=== PATIENT | male | born 1970 | race Caucasian/White ===

== ENCOUNTER 2019-03-05 10:48 | Emergency (ER) | payer OTHER ==
[2019-03-05 10:54] VITALS: RESP 18
[2019-03-05] MEDS ORDERED: methylPREDNISolone SOD SUCCI 125 MG/2 ML VIAL IV STA (11:23)
[2019-03-05] MEDS ORDERED: FAMOTIDINE 20 MG/2 ML VIAL IV STA (11:23)
[2019-03-05] MEDS ORDERED: diphenhydrAMINE 50 MG/ML 1 ML VIAL IVP STA (11:23)
--- NOTE | 2019-03-05 11:46 | ED ---
Allergic Reaction HPI - General Chief complaint: Allergic Reaction Stated complaint: Bee sting Time Seen by Provider: 03/05/19 11:11 Source: patient Mode of arrival: ambulatory Limitations: no limitations - History of Present Illness Initial Comments: Is a 49-year-old male with a benign history for ALLERGIES was stung by a bee this morning around 73 to 8:00. He states it started around the right eyebrow. It today started developing erythema and rash feels like is a lump in his throat he states he has a rash on his arms trunk and legs. He has never had a problem with this before no difficulty breathing. No nausea no vomiting sweats or other symptoms no palpitations no lightheadedness. MD Complaint: allergic reaction, hives - Related Data Home Medications Medication Instructions Recorded Confirmed Rivaroxaban [Xarelto] 20 mg PO DAILY 03/05/19 03/05/19 diphenhydrAMINE HCL [Children's 50 mg PO ONCE PRN 03/05/19 03/05/19 Benadryl Allergy] Previous Rx's Medication Instructions Recorded EPINEPHrine [Epipen 2-Uriel] 0.3 mg IM ONCE PRN #1 pack 03/05/19 Famotidine [Pepcid] 20 mg PO BID #10 tablet 03/05/19 methylPREDNISolone Dose Pack 4 mg PO DIRECTED #21 package 03/05/19 [Medrol Dose Pack] Allergies Allergy/AdvReac Type Severity Reaction Status Date / Time venom-honey bee Allergy Rash/Hives Verified 03/05/19 11:15 Review of Systems ROS Statement: Those systems with pertinent positive or pertinent negative responses have been documented in the HPI. ROS Other: All systems not noted in ROS Statement are negative. Past Medical History Additional Past Medical History / Comment(s): PE, DVT History of Any Multi-Drug Resistant Organisms: None Reported Past Surgical History: Orthopedic Surgery Past Psychological History: No Psychological Hx Reported Smoking Status: Current every day smoker Past Alcohol Use History: Daily Past Drug Use History: Marijuana General Exam - General Exam Comments Initial Comments: This is a well-developed well-nourished awake alert oriented 3 male Limitations: no limitations General appearance: alert, in no apparent distress, anxious Head exam: Present: normocephalic, other (Marked erythema to the right orbit right eyebrow area no definite foreign body seen the sting site is asked he clearly not identified. Marked erythema to the face however. Edema to the right eyelid. Erythema the right eyelid.) Eye exam: Present: PERRL, EOMI. Absent: normal appearance ENT exam: Present: normal exam, mucous membranes moist Neck exam: Present: normal inspection, full ROM, other (No stridor JVD or bruits). Absent: tenderness, meningismus, lymphadenopathy Respiratory exam: Present: normal lung sounds bilaterally. Absent: wheezes, rales, decreased breath sounds Cardiovascular Exam: Present: regular rate, normal rhythm, normal heart sounds. Absent: systolic murmur, diastolic murmur, rubs, gallop, clicks GI/Abdominal exam: Present: soft, normal bowel sounds, other. Absent: distended, tenderness, guarding, rebound, rigid Extremities exam: Present: full ROM, normal capillary refill, other (Rash noted to the upper or lower extremities). Absent: tenderness, pedal edema, joint swelling, calf tenderness Back exam: Present: normal inspection Neurological exam: Present: alert, oriented X3, CN II-XII intact Psychiatric exam: Present: normal affect, normal mood Skin exam: Present: warm, dry, intact, erythema, urticaria. Absent: normal color, rash Course Vital Signs 03/05/19 10:52 Temperature 97.7 F Pulse Rate 98 Respiratory 18 Rate Blood Pressure 148/105 O2 Sat by Pulse 98 Oximetry Medical Decision Making - Medical Decision Making I did reevaluate patient several occasions he is feeling improved he'll be discharged on appropriate medication will also be given a prescription for an EpiPen. He was cautioned about exposure to heat. Disposition Clinical Impression: Allergic reaction, Bee sting reaction Disposition: HOME SELF-CARE Condition: Good Instructions (If sedation given, give patient instructions): Allergic Rhinitis (ED), Insect Bite or Sting (ED) Additional Instructions: [id number] Benadryl 25 mg every 6 hours as needed. Avoid hot environments for the next several days. Prescriptions: EPINEPHrine [Epipen 2-Uriel] 0.3 mg IM ONCE PRN #1 pack PRN Reason: Anaphylaxis methylPREDNISolone Dose Pack [Medrol Dose Pack] 4 mg PO DIRECTED #21 package Famotidine [Pepcid] 20 mg PO BID #10 tablet Is patient prescribed a controlled substance at d/c from ED?: No Referrals: Nonstaff,Physician [Primary Care Provider] - 1-2 days
[2019-03-05] MEDS ORDERED: KETOROLAC 30 MG/ML 1 ML VIAL IVP STA (12:15)
[2019-03-05 14:13] VITALS: BP 140/90; PULSE 63; TEMP 98.4
== END 2019-03-05 14:13 | disposition home or self-care (01) ==
LOC: EC 10:48
DX: T63.441A Toxic effect of venom of bees, accidental (unintentional), initial encounter (principal); F17.200 Nicotine dependence, unspecified, uncomplicated; Z86.718 Personal history of other venous thrombosis and embolism; Z86.711 Personal history of pulmonary embolism; Z79.01 Long term (current) use of anticoagulants; Z91.030 Bee allergy status
CPT/HCPCS: 99282; 96374; 96375 ×3; J1200; J2930; J1885

== ENCOUNTER 2021-02-06 01:30 | Emergency (ER) | payer OTHER ==
[2021-02-06 01:43] VITALS: TEMP 97.8
[2021-02-06] MEDS ORDERED: KETOROLAC 15 MG/ML 1 ML VIAL IVP STA (02:18)
[2021-02-06] MEDS ORDERED: MORPHINE SULFATE 4 MG/ML SYRINGE IV STA (02:18)
--- NOTE | 2021-02-06 02:22 | ED ---
Extremity Problem HPI - General Chief complaint: Extremity Problem,Nontraumatic Stated complaint: Lt Leg Pain Time Seen by Provider: 02/06/21 01:47 Source: patient Mode of arrival: wheelchair Limitations: no limitations - History of Present Illness MD Complaint: extremity pain, extremity swelling Onset/Timin -: days(s) Location: left, lower extremity History of Same: Yes Radiation: none Quality: aching Consistency: constant Worsens with: weight bearing, palpation Associated Symptoms: denies other symptoms - Related Data Home Medications Medication Instructions Recorded Confirmed Rivaroxaban [Xarelto] 20 mg PO DAILY 03/05/19 03/05/19 diphenhydrAMINE HCL [Children's 50 mg PO ONCE PRN 03/05/19 03/05/19 Benadryl Allergy] Previous Rx's Medication Instructions Recorded EPINEPHrine [Epipen 2-Uriel] 0.3 mg IM ONCE PRN #1 pack 03/05/19 Famotidine [Pepcid] 20 mg PO BID #10 tablet 03/05/19 methylPREDNISolone Dose Pack 4 mg PO DIRECTED #21 package 03/05/19 [Medrol Dose Pack] Cephalexin [Keflex] 500 mg PO Q6HR #28 cap 02/06/21 HYDROcodone/APAP 5-325MG [[place] 1 tab PO Q4HR PRN 3 Days #18 tab 02/06/21 5-325] Allergies Allergy/AdvReac Type Severity Reaction Status Date / Time venom-honey bee Allergy Rash/Hives Verified 02/06/21 01:43 Review of Systems ROS Statement: Those systems with pertinent positive or pertinent negative responses have been documented in the HPI. ROS Other: All systems not noted in ROS Statement are negative. Constitutional: Denies: fever, chills Respiratory: Denies: cough, dyspnea Cardiovascular: Denies: chest pain, palpitations, edema, syncope Gastrointestinal: Denies: abdominal pain, nausea, vomiting Musculoskeletal: Reports: as per HPI, other (See HPI) Neurological: Denies: weakness, numbness Past Medical History Past Medical History: Deep Vein Thrombosis (DVT), Pulmonary Embolus (PE) Additional Past Medical History / Comment(s): DDD, History of Any Multi-Drug Resistant Organisms: None Reported Past Surgical History: Orthopedic Surgery Past Psychological History: PTSD Smoking Status: Current every day smoker Past Alcohol Use History: Daily, Heavy Past Drug Use History: Marijuana General Exam Limitations: no limitations General appearance: alert, in no apparent distress Head exam: Present: atraumatic, normocephalic Respiratory exam: Present: normal lung sounds bilaterally. Absent: respiratory distress, wheezes, rales, rhonchi, stridor Cardiovascular Exam: Present: regular rate, normal rhythm, normal heart sounds. Absent: systolic murmur, diastolic murmur, rubs, gallop GI/Abdominal exam: Present: soft. Absent: tenderness, guarding, rebound Extremities exam: Present: tenderness, calf tenderness (Left) Back exam: Present: normal inspection Neurological exam: Present: alert Skin exam: Present: warm, dry, intact, normal color. Absent: rash Course Vital Signs 02/06/21 01:39 Temperature 97.8 F Pulse Rate 86 Respiratory 20 Rate Blood Pressure 139/95 O2 Sat by Pulse 97 Oximetry Medical Decision Making - Lab Data Result diagrams: 02/06/21 02:18 Lab Results 02/06/21 02/06/21 Range/Units 02:18 02:18 WBC 6.9 (3.8-10.6) k/uL RBC 4.64 (4.30-5.90) m/uL Hgb 17.5 (13.0-17.5) gm/dL Hct 50.1 (39.0-53.0) % MCV 108.0 H (80.0-100.0) fL MCH 37.7 H (25.0-35.0) pg MCHC 34.9 (31.0-37.0) g/dL RDW 13.6 (11.5-15.5) % Plt Count 187 (150-450) k/uL MPV 7.2 Neutrophils % 55 % Lymphocytes % 31 % Monocytes % 6 % Eosinophils % 6 % Basophils % 1 % Neutrophils # 3.8 (1.3-7.7) k/uL Lymphocytes # 2.1 (1.0-4.8) k/uL Monocytes # 0.4 (0-1.0) k/uL Eosinophils # 0.4 (0-0.7) k/uL Basophils # 0.1 (0-0.2) k/uL Macrocytosis Moderate ESR 2 (0-15) mm/hr D-Dimer 1.07 H (<0.60) mg/L FEU Disposition Clinical Impression: Superficial vein thrombosis Disposition: HOME SELF-CARE Condition: Fair Instructions (If sedation given, give patient instructions): Superficial Thrombophlebitis (ED) Prescriptions: Cephalexin [Keflex] 500 mg PO Q6HR #28 cap HYDROcodone/APAP 5-325MG [[place] 5-325] 1 tab PO Q4HR PRN 3 Days #18 tab PRN Reason: Pain Is patient prescribed a controlled substance at d/c from ED?: Yes When asked, does pt state using other controlled substances?: No If prescribed controlled substance>3 days was MAPS reviewed?: Prescribed <3 Days If opioid is for acute pain is fill amount 7 days or less?: Yes If Rx opioid, was Start Talking consent form obtained?: Yes Referrals: Nonstaff,Physician [Primary Care Provider] - 1-2 days Mesfin Magana DO [Doctor of Osteopathic Medicine] - 1-2 days
--- NOTE | 2021-02-06 02:32 | XR ---
EXAMINATION TYPE: XR tibia fibula LT DATE OF EXAM: 02/06/2021 COMPARISON: NONE HISTORY: Pain and swelling TECHNIQUE: 4 views FINDINGS: There is a plate fixing the distal fibula. There is some narrowing of the medial joint spac e of the knee. There is calcification of the menisci at the knee. Ankle mortise is anatomic. I see no fracture nor dislocation. IMPRESSION: Mild chondrocalcinosis at the knee joint. This is consistent with pseudogout. No fracture seen.
[2021-02-06 02:37] LABS: Basophils # (A) 0.1 k/uL (0-0.2); Basophils % (A) 1 %; Eosinophils # (A) 0.4 k/uL (0-0.7); Eosinophils % (A) 6 %; HCT 50.1 % (39.0-53.0); HGB 17.5 gm/dL (13.0-17.5); Lymphocytes # (A) 2.1 k/uL (1.0-4.8); Lymphocytes % (A) 31 %; MCH 37.7 pg (25.0-35.0); MCHC 34.9 g/dL (31.0-37.0); Macrocytosis Moderate; Mean Platelet Volume 7.2; Monocytes # (A) 0.4 k/uL (0-1.0); Monocytes % (A) 6 %; Neutrophils # (A) 3.8 k/uL (1.3-7.7); Neutrophils % (A) 55 %; Platelet Count 187 k/uL (150-450); RBC 4.64 m/uL (4.30-5.90); RDW 13.6 % (11.5-15.5); WBC 6.9 k/uL (3.8-10.6)
[2021-02-06] MEDS ORDERED: HYDROmorphone 0.5 MG/0.5 ML SYRINGE IVP STA ×2 (03:17→04:14)
--- NOTE | 2021-02-06 03:34 | US ---
EXAMINATION TYPE: US venous doppler duplex LE LT DATE OF EXAM: 02/06/2021 3:15 AM COMPARISON: NONE CLINICAL HISTORY: pain/swelling. hx of dvt, pt taking blood thinners SIDE PERFORMED: left TECHNIQUE: The lower extremity deep venous system is examined utilizing real time linear array sonog rohit with graded compression, doppler sonography and color-flow sonography. VESSELS IMAGED: Common Femoral Vein Deep Femoral Vein Greater Saphenous Vein * Femoral Vein Popliteal Vein Small Saphenous Vein * Proximal Calf Veins (* superficial vessels) Left Leg: Negative for DVT. Positive for SVT in the GSV at the left calf near redness IMPRESSION: There is superficial vein thrombosis in the long saphenous vein. There is no evidence of deep vein thrombosis.
[2021-02-06 03:51] LABS: Erythrocyte Sedimentation Rate 2 mm/hr (0-15)
[2021-02-06 04:35] VITALS: BP 146/98; PULSE 78; RESP 16
== END 2021-02-06 04:34 | disposition home or self-care (01) ==
LOC: EC 01:30
DX: I82.812 Embolism and thrombosis of superficial veins of left lower extremity (principal); F17.200 Nicotine dependence, unspecified, uncomplicated; Z91.030 Bee allergy status
CPT/HCPCS: 36415; 85379; 85652; 85025; 73590; 93971; 99284; 96374; 96375; 96376; J2270; J1885; J1170

== ENCOUNTER 2021-06-12 18:08 | Emergency (ER) | payer OTHER ==
[2021-06-12 20:06] VITALS: TEMP 98.7
--- NOTE | 2021-06-12 21:10 | US ---
EXAMINATION TYPE: US venous doppler duplex LE LT DATE OF EXAM: 06/12/2021 8:45 PM COMPARISON: US CLINICAL HISTORY: DVT Hx, left calf and knee pain and swelling. Left calf and knee pain and swelling. Hx DVT, PE. Patient on Xarelto. SIDE PERFORMED: Left TECHNIQUE: The lower extremity deep venous system is examined utilizing real time linear array sonog rohit with graded compression, doppler sonography and color-flow sonography. VESSELS IMAGED: Common Femoral Vein Deep Femoral Vein Greater Saphenous Vein * Femoral Vein Popliteal Vein Small Saphenous Vein * Proximal Calf Veins (* superficial vessels) Left Leg: Internal echoes seen within the popliteal vein and prox calf veins. These veins do not nik ear to compress. IMPRESSION: There is evidence of acute deep vein thrombosis in the popliteal vein and calf veins.
[2021-06-12] MEDS ORDERED: MORPHINE SULFATE 4 MG/ML SYRINGE IM STA (21:27)
[2021-06-12 21:43] VITALS: RESP 18
--- NOTE | 2021-06-12 21:45 | ED ---
Extremity Problem HPI - General Chief complaint: Extremity Problem,Nontraumatic Stated complaint: Lt Leg Pain Time Seen by Provider: 06/12/21 21:10 Source: patient Mode of arrival: ambulatory Limitations: no limitations - History of Present Illness Initial comments: This patient is a 51-year-old man who presents with concern that he believes he has developed another DVT. Patient has history of previous left leg DVTs, which had started happening after he had an injury to his left leg years ago. The patient had been taking Xarelto, but then states that he had been out of his medication for 6 days last week. Patient has noted that he started having pain approximately 2-3 days ago. Over the course of the past day or so he has noticed swelling and has been propping his leg up to prevent that. Patient denies chest pain, dyspnea, cough, hemoptysis, palpitations, lightheadedness or syncope. MD Complaint: extremity pain, extremity swelling Onset/Timin -: days(s) Location: left, lower extremity History of Same: Yes Radiation: none Quality: dull Consistency: constant Improves with: elevation Worsens with: nothing Associated Symptoms: denies other symptoms - Related Data Home Medications Medication Instructions Recorded Confirmed Rivaroxaban [Xarelto] 20 mg PO DAILY 03/05/19 03/05/19 diphenhydrAMINE HCL [Children's 50 mg PO ONCE PRN 03/05/19 03/05/19 Benadryl Allergy] Previous Rx's Medication Instructions Recorded EPINEPHrine [Epipen 2-Uriel] 0.3 mg IM ONCE PRN #1 pack 03/05/19 Famotidine [Pepcid] 20 mg PO BID #10 tablet 03/05/19 methylPREDNISolone Dose Pack 4 mg PO DIRECTED #21 package 03/05/19 [Medrol Dose Pack] Cephalexin [Keflex] 500 mg PO Q6HR #28 cap 02/06/21 HYDROcodone/APAP 5-325MG [[place] 1 tab PO Q4HR PRN 3 Days #18 tab 02/06/21 5-325] HYDROcodone/APAP 5-325MG [[place] 1 tab PO Q4HR PRN 3 Days #18 tab 06/12/21 5-325] Rivaroxaban [Xarelto] 15 mg PO BID #42 tab 06/12/21 Allergies Allergy/AdvReac Type Severity Reaction Status Date / Time venom-honey bee Allergy Rash/Hives Verified 06/12/21 20:06 Review of Systems ROS Statement: Those systems with pertinent positive or pertinent negative responses have been documented in the HPI. ROS Other: All systems not noted in ROS Statement are negative. Constitutional: Denies: fever, chills, weakness Respiratory: Denies: cough, dyspnea, hemoptysis Cardiovascular: Denies: chest pain, palpitations, orthopnea, edema, syncope Gastrointestinal: Denies: abdominal pain, vomiting, diarrhea Genitourinary: Denies: dysuria Musculoskeletal: Reports: myalgia (Left calf). Denies: back pain Skin: Denies: rash, lesions Neurological: Denies: headache, weakness, numbness Past Medical History Past Medical History: Deep Vein Thrombosis (DVT), Pulmonary Embolus (PE) Additional Past Medical History / Comment(s): DDD, DVT History of Any Multi-Drug Resistant Organisms: None Reported Past Surgical History: Orthopedic Surgery Past Psychological History: PTSD Smoking Status: Current every day smoker Past Alcohol Use History: Daily, Heavy Past Drug Use History: Marijuana General Exam Limitations: no limitations General appearance: alert, in no apparent distress Respiratory exam: Present: normal lung sounds bilaterally. Absent: respiratory distress, wheezes, rales, rhonchi, stridor Cardiovascular Exam: Present: regular rate, normal rhythm, normal heart sounds. Absent: systolic murmur, diastolic murmur, rubs, gallop GI/Abdominal exam: Present: soft. Absent: tenderness Left Hip exam: Present: normal inspection. Absent: tenderness, swelling Upper Leg exam: Present: normal inspection, full ROM. Absent: tenderness, swelling Knee exam: Present: normal inspection, full ROM. Absent: tenderness, swelling Lower Leg exam: Present: tenderness, swelling, erythema, Homans' sign. Absent: abrasion, laceration, ecchymosis, deformity, crepitus, dislocation, palpable cord Ankle exam: Present: normal inspection, full ROM. Absent: tenderness, swelling, abrasion Foot/Toe exam: Present: normal inspection, full ROM. Absent: tenderness, swelling Neurovascular tendon exam: Present: no vascular compromise. Absent: pulse deficit, abnormal cap refill, motor deficit, sensory deficit, tendon deficit, extremity cold to touch Neurological exam: Present: alert. Absent: motor sensory deficit Skin exam: Present: warm, dry, intact, normal color. Absent: rash Course Vital Signs 06/12/21 06/12/21 20:01 21:40 Temperature 98.7 F Pulse Rate 93 81 Respiratory 22 18 Rate Blood Pressure 141/86 153/106 O2 Sat by Pulse 100 98 Oximetry Disposition Clinical Impression: Deep vein thrombosis (DVT) of lower extremity Disposition: HOME SELF-CARE Condition: Good Instructions (If sedation given, give patient instructions): Deep Vein Thrombosis (ED) Prescriptions: HYDROcodone/APAP 5-325MG [[place] 5-325] 1 tab PO Q4HR PRN 3 Days #18 tab PRN Reason: Pain Rivaroxaban [Xarelto] 15 mg PO BID #42 tab Is patient prescribed a controlled substance at d/c from ED?: No Referrals: None,Stated [Primary Care Provider] - 1-2 days
[2021-06-12] MEDS ORDERED: HYDROmorphone 0.5 MG/0.5 ML SYRINGE IM STA (22:27)
[2021-06-12] MEDS ORDERED: KETOROLAC 15 MG/ML 1 ML VIAL IM STA (23:10)
[2021-06-13 00:03] VITALS: BP 148/96; PULSE 74
== END 2021-06-13 00:04 | disposition home or self-care (01) ==
LOC: EC 18:08
DX: I82.402 Acute embolism and thrombosis of unspecified deep veins of left lower extremity (principal); F17.200 Nicotine dependence, unspecified, uncomplicated; Z86.711 Personal history of pulmonary embolism; Z91.018 Allergy to other foods; Z79.899 Other long term (current) drug therapy
CPT/HCPCS: 93971; 99283; 96372 ×2; J2270; J1885; J1170

== ENCOUNTER 2023-02-06 14:35 | Observation (INO) | payer OTHER ==
--- NOTE | 2023-02-06 15:25 | ED ---
Extremity Problem HPI - General Source: patient, RN notes reviewed Mode of arrival: ambulatory Limitations: no limitations <Aneudy Garcia - Last Filed: 02/06/23 15:24> - General Source: patient, RN notes reviewed Mode of arrival: ambulatory Limitations: no limitations - History of Present Illness MD Complaint: extremity pain, extremity swelling Onset/Timin -: week(s) <Sarah Huston - Last Filed: 02/06/23 20:59> - General Chief complaint: Extremity Problem,Nontraumatic Stated complaint: possible blood clots Time Seen by Provider: 02/06/23 15:24 - History of Present Illness Initial comments: 52-year-old male presents emergency Department chief complaint of bilateral leg swelling, pain. Patient states he was admitted a few months ago for similar reasons states he had procedure of his vessels. Patient states he is out with her DVT history. He denies missing any doses. He states the swelling of his legs are getting worse denies any shortness of breath. (Aneudy Garcia) In addition to the information above, patient states that he had removal of the blood clot from his left leg when he was here in December. He is currently taking Eliquis and has factor V Leiden deficiency. States that over the last week, this pain has been uncontrollable in both of the legs. He has also had increased redness and purple discoloration to both legs. (Sarah Huston) - Related Data Home Medications Medication Instructions Recorded Confirmed EPINEPHrine (Auto Inject) [Epipen] 0.3 mg IM ONCE PRN 12/10/22 12/10/22 Gabapentin [Neurontin] 200 mg PO BID PRN 12/10/22 12/10/22 Multivitamins, Thera [Multivitamin 1 tab PO DAILY 12/10/22 12/10/22 (formulary)] Sildenafil Citrate 100 mg PO DAILY PRN 12/10/22 12/10/22 busPIRone HCL 7.5 mg PO BID 12/10/22 12/10/22 Previous Rx's Medication Instructions Recorded Apixaban [Eliquis Starter Pack 5 - 10 mg PO DIRECTED 30 Days 12/13/22 (for VTE)] #1 each Aspirin 81 mg PO DAILY #30 tab 12/14/22 oxyCODONE HCL/ACETAMINOPHEN 1 tab PO Q4HR PRN 3 Days #18 tab 12/14/22 [Percocet 10-325 mg] Allergies Allergy/AdvReac Type Severity Reaction Status Date / Time venom-honey bee Allergy Rash/Hives Verified 02/06/23 14:55 Review of Systems ROS Other: All systems not noted in ROS Statement are negative. <RadhaAneudy Megan - Last Filed: 02/06/23 15:24> ROS Other: All systems not noted in ROS Statement are negative. <Sarah Huston - Last Filed: 02/06/23 20:59> ROS Statement: Those systems with pertinent positive or pertinent negative responses have been documented in the HPI. Past Medical History Past Medical History: Deep Vein Thrombosis (DVT), Pulmonary Embolus (PE) Additional Past Medical History / Comment(s): DDD, DVT History of Any Multi-Drug Resistant Organisms: None Reported Past Surgical History: Orthopedic Surgery Additional Past Surgical History / Comment(s): thrombectomy in LLE Past Anesthesia/Blood Transfusion Reactions: No Reported Reaction Past Psychological History: PTSD Smoking Status: Current every day smoker Past Alcohol Use History: Daily, Heavy Past Drug Use History: Marijuana <RadhaAneudy Guzman - Last Filed: 02/06/23 15:24> General Exam Limitations: no limitations <RadhaAneudy Guzman - Last Filed: 02/06/23 15:24> Limitations: no limitations General appearance: alert, in no apparent distress Head exam: Present: atraumatic, normocephalic, normal inspection Cardiovascular Exam: Present: regular rate, normal rhythm, normal heart sounds. Absent: systolic murmur, diastolic murmur, rubs, gallop, clicks Extremities exam: Present: other (Tenderness, erythema, and swelling to the bilateral lower extremities. Starting at approximately the mid calf spreading distally, the erythema turns into more of the purplish discoloration. 2+ DP and PT pulses.) Neurological exam: Present: alert, oriented X3, CN II-XII intact Psychiatric exam: Present: normal affect, normal mood <Sarah Huston - Last Filed: 02/06/23 20:59> - General Exam Comments Initial Comments: Visual Physical Exam Vital signs reviewed General: Well-appearing, nontoxic, no acute distress. Head: Normocephalic, atraumatic Eyes: PERRLA, EOMI ENT: Airway patent Chest: Nonlabored breathing Skin: No visual rash, normal skin tone Neuro: Alert and oriented 3 Musculoskeletal: No gross abnormalities (Aneudy Garcia) Course Vital Signs 02/06/23 14:55 Temperature 97.9 F Pulse Rate 92 Respiratory 16 Rate Blood Pressure 128/78 O2 Sat by Pulse 99 Oximetry Medical Decision Making - Lab Data Result diagrams: 02/06/23 16:47 - Radiology Data Radiology results: report reviewed, image reviewed <Sarah Huston - Last Filed: 02/06/23 20:59> - Medical Decision Making This is a 52-year-old male who presents to the emergency department for bilat eral leg pain and swelling: Was pt. sent in by a medical professional or institution? @ -No Did you speak to anyone other than the patient for history? @ -No Did you review nursing and triage notes? @ -Yes, and I agree, it is accurate with regards to the patient's symptoms. Were old charts reviewed? @ -Yes, admission records from 12/10-12/14, at which time the patient had a left thrombectomy. Differential Diagnosis? @ -Differential Leg Pain: Leg fracture, leg sprain, DVT, PVD, arterial insufficiency, iliac artery aneurysm, cellulitis, compartment syndrome, tendinopathy, nerve entrapment, piriformis syndrome, osteoarthritis, rhabdomyolysis, myositis, cramping from an electrolyte imbalance, this is not meant to be an all inclusive list. EKG interpreted by me (3pts min.)? @ -Not obtained X-rays interpreted by me (1pt min.)? @ -Not obtained CT interpreted by me (1pt min.)? @ -Not obtained U/S interpreted by me (1pt. min.)? @ -Not interpreted by me What testing was considered but not performed? (CT, X-rays, U/S, labs)? Why? @ -None What meds were considered but not given? Why? @ -None Did you discuss the management of the patient with other professionals? @ -Yes, Dr. Layne, who accepts the patient for admission. Did you reconcile home meds? @ -No Was smoking cessation discussed for >3mins.? @ -No Was critical care preformed (if so, how long)? @ -No Were there social determinants of health that impacted care today? How? (Homelessness, low income, unemployed, alcoholism, drug addiction, [place] sportation, low edu. Level, literacy, decrease access to med. care, penitentiary, rehab)? @ -No Was there de-escalation of care discussed even if they declined? (Discuss DNR or withdrawal of care, Hospice)? @ -No What co-morbidities impacted this encounter? (DM, HTN, Smoking, COPD, CAD, Cancer, CVA, Hep., AIDS, mental health diagnosis, sleep apnea, morbid obesity)? @ -Factor V Leiden Was patient admitted / discharged? @ -Admitted. Duplex ultrasound of the bilateral lower extremities obtained. Patient is positive for DVTs in the bilateral lower extremities. The left lower extremity does have a known DVT. He did have a thrombectomy in December during that hospitalization with removal of a large portion of the clot. However, he did not have any pain or discoloration to the right leg at that time, suggesting that the clot formed sometime between then and now, or worsened. Patient also states that he did not have pain or discoloration to the area until a week ago. Additionally, the pain and discoloration have been increasing on the left lower extremity, also starting a week ago. Pain continues to have intractable pain, despite the Dilaudid. Additionally, patient is already on Eliquis but appears to have developed a new clot in the right lower extremity. Patient admitted to medicine with vascular consult for bilateral DVTs given the extent of this pain and because he is forming new clots despite taking the Eliquis. Patient started on high intensity heparin protocol. Undiagnosed new problem with uncertain prognosis? @ -None Drug Therapy requiring intensive monitoring for toxicity (Heparin, Nitro, Insulin, Cardizem)? @ -None Were any procedures done? @ -None Diagnosis/symptom? @ -Bilateral DVT Acute, or Chronic, or Acute on Chronic? @ -Chronic on the left lower extremity, unclear in the right lower extremity Uncomplicated (without systemic symptoms) or Complicated (systemic symptoms)? @ -Complicated Side effects of treatment? @ -None Exacerbation, Progression, or Severe Exacerbation] @ -Not applicable Poses a threat to life or bodily function? @ -Yes This case was discussed in detail with the attending ED physician, Dr. Santiago. Presentation, findings, and treatment plan discussed in detail as well. (Sarah Huston) - Lab Data Lab Results 02/06/23 02/06/23 Range/Units 16:47 16:47 WBC 5.4 (3.8-10.6) k/uL RBC 4.16 L (4.30-5.90) m/uL Hgb 15.3 D (13.0-17.5) gm/dL Hct 48.6 (39.0-53.0) % MCV 117.0 H (80.0-100.0) fL MCH 36.8 H (25.0-35.0) pg MCHC 31.5 (31.0-37.0) g/dL RDW 16.9 H (11.5-15.5) % Plt Count 216 (150-450) k/uL MPV 7.7 Neutrophils % 44 % Lymphocytes % 39 % Monocytes % 6 % Eosinophils % 6 % Basophils % 1 % Neutrophils # 2.4 (1.3-7.7) k/uL Lymphocytes # 2.1 (1.0-4.8) k/uL Monocytes # 0.3 (0-1.0) k/uL Eosinophils # 0.3 (0-0.7) k/uL Basophils # 0.0 (0-0.2) k/uL Manual Slide Review Performed Anisocytosis Slight Macrocytosis Marked A PT 10.3 (9.0-12.0) sec INR 1.0 (<1.2) APTT 26.3 (22.0-30.0) sec Disposition <Aneudy Garcia - Last Filed: 02/06/23 15:24> <Sarah Huston - Last Filed: 02/06/23 20:59> Clinical Impression: DVT of lower extremity, bilateral, Factor V Leiden Disposition: ADMITTED IP TO THIS [facility] Referrals: None,Stated [Primary Care Provider] - 1-2 days
[2023-02-06 17:03] LABS: Anisocytosis Slight; Basophils % (A) 1 %; Eosinophils # (A) 0.3 k/uL (0-0.7); Eosinophils % (A) 6 %; HCT 48.6 % (39.0-53.0); Lymphocytes # (A) 2.1 k/uL (1.0-4.8); Lymphocytes % (A) 39 %; MCH 36.8 pg (25.0-35.0); MCHC 31.5 g/dL (31.0-37.0); Macrocytosis Marked; Mean Platelet Volume 7.7; Monocytes # (A) 0.3 k/uL (0-1.0); Monocytes % (A) 6 %; Neutrophils # (A) 2.4 k/uL (1.3-7.7); Neutrophils % (A) 44 %; Platelet Count 216 k/uL (150-450); RBC 4.16 m/uL (4.30-5.90); RDW 16.9 % (11.5-15.5); WBC 5.4 k/uL (3.8-10.6)
[2023-02-06 17:20] LABS: Partial Thromboplastin Time 26.3 sec (22.0-30.0); Prothrombin Time 10.3 sec (9.0-12.0)
[2023-02-06 17:25] LABS: HGB 15.3 gm/dL (13.0-17.5)
--- NOTE | 2023-02-06 18:39 | US ---
EXAMINATION TYPE: US venous doppler duplex LE BI DATE OF EXAM: 02/06/2023 6:27 PM COMPARISON: 12/10/22 CLINICAL INDICATION: Male, 52 years old with history of pain/swelling; pain and swelling in bilateral legs, right worse than left. Hx of DVT in bilat legs. On blood thinners. Pt states he has factor 5 SIDE PERFORMED: Bilateral TECHNIQUE: The lower extremity deep venous system is examined utilizing real time linear array sonog rohit with graded compression, doppler sonography and color-flow sonography. VESSELS IMAGED: Common Femoral Vein Deep Femoral Vein Greater Saphenous Vein * Femoral Vein Popliteal Vein Small Saphenous Vein * Proximal Calf Veins (* superficial vessels) Right Leg: There appears to be a duplicate femoral vein, one with echoes and one without echoes. The re is echoes seen and no flow visualized prox, mid, and distal fem vein. Some flow seen in popliteal vein, possible chronic DVT seen Left Leg: Echoes seen throughout leg. Minimal flow and partial compression seen in CFV, prox, and mi d fem vein. No flow seen in distal fem vein. Minimal flow and partial compression seen in popliteal v ein IMPRESSION: 1. Deep venous thrombosis of the right femoral and popliteal veins. There is some flow identified wit hin the proximal/mid right femoral vein and right popliteal vein. Probably chronic DVT. 2. Continued deep venous thrombosis throughout the left lower extremity. There is some flow with part ial compressibility involving the left common femoral, proximal mid femoral veins and popliteal veins . Consistent with known chronic DVT.
[2023-02-06] MEDS ORDERED: HYDROmorphone 1 MG/ML 1 ML SYRINGE IM STA (18:48)
[2023-02-06] MEDS ORDERED: HYDROmorphone 1 MG/ML 1 ML SYRINGE IVP STA (20:31)
[2023-02-06] MEDS ORDERED: ONDANSETRON 4 MG/2 ML VIAL IVP PRN (20:42)
[2023-02-06] MEDS ORDERED: HYDROmorphone 0.5 MG/0.5 ML SYRINGE IVP PRN (20:42)
[2023-02-06] MEDS ORDERED: NALOXONE 0.4 MG/ML 1 ML VIAL IV PRN (20:42)
[2023-02-06] MEDS ORDERED: ACETAMINOPHEN TAB 325 MG TAB PO PRN (20:42)
[2023-02-06] MEDS ORDERED: HEPARIN SODIUM 1,000 UN/ML (10ML VL) IV ONE (20:45)
[2023-02-06] MEDS ORDERED: HEPARIN SODIUM 1,000 UN/ML (10ML VL) IV PRN (20:45)
[2023-02-06] MEDS ORDERED: HEPARIN SOD,PORK IN 0.45% NACL 25,000 UNIT in 0.45% NACL 1 250ML.BAG IV SCH (21:00)
[2023-02-06] MEDS: HYDROmorphone 1 MG/ML 1 ML SYRINGE IVP PRN (23:15)
--- NOTE | 2023-02-07 00:36 | P.HPIM ---
History of Present Illness H&P Date: 02/06/23 The patient is a 52-year-old male with a PMH of fact V Leiden (history of multiple DVTs and PEs), history of Xarelto and Lovenox therapy failures with most recent left lower extremity DVT in 12/25 now on Eliquis, who now presented to the emergency room with complaints of gradually worsening bilateral lower extremity pain with right greater than left. Patient reports that over the past 1 week, he has noticed that his right lower extremity has been hurting. He reports that his pain is 5 out of 10 at the time of interview. He denied any additional complaints. He denies extrinsics chest discomfort, shortness of breath, nausea, vomiting, abdominal pain, diarrhea. He reports compliance with his medications at home. In the emergency room lower extremity duplex revealed a DVT of the right femoral and popliteal veins, suspected chronic. There was also a DVT of the left lower extremity, also chronic. Laboratory evaluation was reviewed and was remarkable for hemoglobin 15.3 with MCV 117. ED documentation reviewed and case discussed with ED provider. Review of systems: Pertinent positives and negatives as discussed in HPI, a complete review of systems was performed and all other systems are negative. Physical examination: Vital signs reviewed General: non toxic, no distress, appears at stated age, normal weight Derm: no unusual rashes/lesions, warm Head: atraumatic, normocephalic, symmetric Eyes: EOMI, no lid lag, anicteric sclera, pupils equal round reactive to light ENT: Nose and ears atraumatic Neck: No cervical lymphadenopathy, trachea midline, supple Mouth: no lip lesion, mucus membranes moist Cardiovascular: S1S2 reg, no murmur, positive dorsalis pedis pulse bilateral, bilateral lower extremity pitting edema to knees with venous stasis changes noted, right lower extremity mild tenderness noted Lungs: CTA bilateral, no rhonchi, no rales, no accessory muscle use Abdominal: soft, nontender to palpation, no guarding Ext: muscle strength 5 out of 5 in all 4 extremities grossly, no gross muscle atrophy, no contractures, Neuro: CN II-XI grossly intact, no gross focal neuro deficits Psych: Alert, oriented, appropriate affect Assessment: Acute on chronic right lower extremity DVT Imaging: In the emergency room lower extremity duplex revealed a DVT of the right femoral and popliteal veins, suspected chronic. There was also a DVT of the left lower extremity, also chronic. Data Review: Laboratory evaluation was reviewed and was remarkable for hemoglobin 15.3 with MCV 117. Plan: Patient initiated on heparin infusion Vascular surgery consulted Pain control DVT prophylaxis: Heparin infusion The patient is admitted with an anticipated greater than 2 midnight stay for evaluation of acute on chronic DVT CODE STATUS: Full Code Discussed with: Patient Anticipated discharge place: Home Past Medical History Past Medical History: Deep Vein Thrombosis (DVT), Pulmonary Embolus (PE) Additional Past Medical History / Comment(s): DDD, DVT History of Any Multi-Drug Resistant Organisms: None Reported Past Surgical History: Orthopedic Surgery Additional Past Surgical History / Comment(s): thrombectomy in LLE Past Anesthesia/Blood Transfusion Reactions: No Reported Reaction Past Psychological History: PTSD Smoking Status: Current every day smoker Past Alcohol Use History: Daily, Heavy Past Drug Use History: Marijuana Medications and Allergies Home Medications Medication Instructions Recorded Confirmed Type EPINEPHrine (Auto Inject) [Epipen] 0.3 mg IM ONCE PRN 12/10/22 02/06/23 History Gabapentin [Neurontin] 200 mg PO BID PRN 12/10/22 02/06/23 History Multivitamins, Thera [Multivitamin 1 tab PO DAILY 12/10/22 02/06/23 History (formulary)] Sildenafil Citrate 100 mg PO DAILY PRN 12/10/22 02/06/23 History busPIRone HCL 7.5 mg PO BID 12/10/22 02/06/23 History Apixaban [Eliquis] 5 mg PO BID 02/06/23 02/06/23 History Allergies Allergy/AdvReac Type Severity Reaction Status Date / Time venom-honey bee Allergy Rash/Hives Verified 02/06/23 22:41 Physical Exam Vitals: Vital Signs Temp Pulse Resp BP Pulse Ox 02/06/23 21:09 75 16 154/94 96 02/06/23 14:55 97.9 F 92 16 128/78 99 Intake and Output 02/06/23 02/06/23 02/07/23 14:59 22:59 06:59 Other: Weight 86.183 kg Results CBC & Chem 7: 02/06/23 16:47 Labs: Abnormal Lab Results - Last 24 Hours (Table) 02/06/23 Range/Units 16:47 RBC 4.16 L (4.30-5.90) m/uL MCV 117.0 H (80.0-100.0) fL MCH 36.8 H (25.0-35.0) pg RDW 16.9 H (11.5-15.5) % Macrocytosis Marked A
[2023-02-07] MEDS: HYDROmorphone 1 MG/ML 1 ML SYRINGE IVP PRN ×2 (02:47→08:37)
[2023-02-07 03:01] VITALS: PULSE 80
[2023-02-07 03:04] LABS: Anisocytosis Slight; Basophils % (A) 1 %; Eosinophils # (A) 0.5 k/uL (0-0.7); Eosinophils % (A) 10 %; HCT 44.8 % (39.0-53.0); HGB 13.8 gm/dL (13.0-17.5); Lymphocytes # (A) 2.2 k/uL (1.0-4.8); Lymphocytes % (A) 41 %; MCH 36.9 pg (25.0-35.0); MCHC 30.8 g/dL (31.0-37.0); Macrocytosis Marked; Mean Platelet Volume 7.9; Monocytes # (A) 0.3 k/uL (0-1.0); Monocytes % (A) 6 %; Neutrophils # (A) 2.1 k/uL (1.3-7.7); Neutrophils % (A) 40 %; Platelet Count 192 k/uL (150-450); RBC 3.74 m/uL (4.30-5.90); RDW 16.9 % (11.5-15.5); WBC 5.3 k/uL (3.8-10.6)
[2023-02-07 08:06] VITALS: BP 134/86; RESP 20; TEMP 97.7
[2023-02-07] MEDS ORDERED: APIXABAN 5 MG TAB PO SCH (09:00)
--- NOTE | 2023-02-07 09:40 | P.GSCN ---
History of Present Illness Consult date: 02/07/23 Reason for Consult: Bilateral DVT, factor V Leiden Requesting physician: Sarah Huston History of present illness: Assessment 52-year-old male with a past medical history lower extremity DVTs and factor V we then. Patient had extensive left lower extremity DVT in the past where he was seen in [place] and had left iliac stenting done. He was admitted in December of this year with left lower extremity are pain and found to have acute extensive DVT in the left lower extremity with thrombosed iliac/femoral vein stents. He underwent TPA followed by thrombectomy of the left iliac and femoral/popliteal veins. Patient has been on his elevated with 5 mg twice a day area he states he has been compliant in taking his medications daily. Upon his discharge from the last admission he was instructed to get compression stockings and wear them daily and keep lower extremities elevated. Patient states he has not been wearing his compression stockings in regularly, states that he has a thigh-high from his last hospital admission but only wears it a couple days a week. He has not had any follow-up from that hospital visit. He has [facility] insurance but he is not established here in [place]. He denies any shortness of breath, chest pain, nausea or vomiting. He had a venous duplex on this admission showing chronic bilateral lower extremity DVTs. Patient states that he does not believe he was told he had a right lower extremity DVT in the past however during his last admission only has left lower extremity was evaluated. Likely patient has had a right lower extremity DVT in the past. He is currently on a heparin drip. Review of Systems A 14 point review systems was completed all pertinent positives and negatives as stated in the HPI. Past Medical History Past Medical History: Deep Vein Thrombosis (DVT), Pulmonary Embolus (PE) Additional Past Medical History / Comment(s): DDD, DVT History of Any Multi-Drug Resistant Organisms: None Reported Past Surgical History: Orthopedic Surgery Additional Past Surgical History / Comment(s): thrombectomy in LLE Past Anesthesia/Blood Transfusion Reactions: No Reported Reaction Past Psychological History: PTSD Smoking Status: Current every day smoker Past Alcohol Use History: Daily, Heavy Past Drug Use History: Marijuana Medications and Allergies Home Medications Medication Instructions Recorded Confirmed Type EPINEPHrine (Auto Inject) [Epipen] 0.3 mg IM ONCE PRN 12/10/22 02/06/23 History Gabapentin [Neurontin] 200 mg PO BID PRN 12/10/22 02/06/23 History Multivitamins, Thera [Multivitamin 1 tab PO DAILY 12/10/22 02/06/23 History (formulary)] Sildenafil Citrate 100 mg PO DAILY PRN 12/10/22 02/06/23 History busPIRone HCL 7.5 mg PO BID 12/10/22 02/06/23 History Apixaban [Eliquis] 5 mg PO BID 02/06/23 02/06/23 History Allergies Allergy/AdvReac Type Severity Reaction Status Date / Time venom-honey bee Allergy Rash/Hives Verified 02/06/23 22:41 Surgical - Exam Vital Signs Temp Pulse Resp BP Pulse Ox 97.9 F 92 16 128/78 99 02/06/23 14:55 02/06/23 14:55 02/06/23 14:55 02/06/23 14:55 02/06/23 14:55 General appearance: The patient is alert, oriented, appears in no acute distress. HET: Head is normocephalic and atraumatic. Pupils are equal and reactive. Neck: Supple. Heart: Regular. Lungs: Equal expansion, normal respiratory effort. Abdomen: Soft, nontender, nondistended. Extremities: Normal skin color and turgor. Bilateral lower extremity edema. Palpable DP pulse. Neurological: No focal deficits. Strength and sensation are grossly intact. Results - Labs 02/07/23 02:38 Abnormal Lab Results - Last 24 Hours (Table) 02/06/23 02/07/23 02/07/23 Range/Units 16:47 02:38 02:38 RBC 4.16 L 3.74 L (4.30-5.90) m/uL MCV 117.0 H 120.0 H (80.0-100.0) fL MCH 36.8 H 36.9 H (25.0-35.0) pg MCHC 30.8 L (31.0-37.0) g/dL RDW 16.9 H 16.9 H (11.5-15.5) % Macrocytosis Marked A Marked A APTT 139.5 H* (22.0-30.0) sec Assessment and Plan Assessment: 1. Bilateral lower extremity DVTs, chronic 2. History of left lower extremity DVT with thrombosed iliac/femoral vein stents status post thrombectomy 3. History of left lower extremity DVT with previous iliac and femoral vein stents 4. Factor V Leiden 5. Tobacco dependence 6. Alcohol abuse Plan: 1. Venous duplex reviewed by Dr. Norman, bilateral lower extremity DVTs appear chronic 2. Discontinue heparin drip 3. Resume Eliquis 4. Elevate lower extremities 5. DOMENICO hose to bilateral lower extremities 6. There is no indication for any vascular surgical intervention. Patient is clear from vascular surgery for discharge. It was discussed with patient again importance of lower extremity compression stockings. Prescription given to patient for compression stockings 20-30 mmHg to be worn daily while out of bed. Also discussed with patient to elevate lower extremities while sitting or lying. Also importance of outpatient follow-up as patient has not been unable to follow-up due to insurance issues. Case management consulted. Thank you for this consultation, we will sign off at this time. The impression and plan of care has been dictated as directed. Dr. Sousa I performed a history and examination of this patient, discussed the same with the dictator. I agree with the dictator's note ,documented as a scribe. Any additional findings or plans will be noted.
--- NOTE | 2023-02-07 12:57 | P.DS ---
Providers Date of admission: 02/06/23 22:46 Expected date of discharge: 02/07/23 Attending physician: Sadie Layne MD Consults: 02/06/23 20:42 Consult Physician Urgent Consulting Provider: Isaac Sousa Consult Reason/Comments: Bilateral DVT, Factor V Leiden Do you want consulting provider notified?: Yes Primary care physician: Stated None Hospital Course: Discharge Diagnosis: Bilateral lower extremity DVT, suspected chronic History of previous venous stents and thrombectomy Factor V [place] Alcohol use and nicotine dependence Hospital Course: 52-year-old male with a PMH of fact V Leiden (history of multiple DVTs and PEs), history of Xarelto and Lovenox therapy failures with most recent left lower extremity DVT in 12/25 now on Eliquis, who now presented to the emergency room with complaints of gradually worsening bilateral lower extremity pain with right greater than left. In the emergency room lower extremity duplex revealed a DVT of the right femoral and popliteal veins, suspected chronic. There was also a DVT of the left lower extremity, also chronic. Laboratory evaluation was reviewed and was remarkable for hemoglobin 15.3 with MCV 117. Vascular surgery was consulted, no acute interventions. Patient will be discharged home and resume Eliquis. He will follow up with hematology in [place] Patient seen and examined at bedside. Vital signs reviewed and stable. General: nontoxic, no distress, appears at stated age Derm: warm, dry Head: atraumatic, normocephalic, symmetric Eyes: EOMI, no lid lag, anicteric sclera Mouth: no lip lesion, mucus membranes moist Cardiovascular: S1S2 reg, no murmur Lungs: CTA bilateral, no rhonchi, no rales , no accessory muscle use Abdominal: soft, nontender to palpation, no guarding, no appreciable organomegaly Ext: no gross muscle atrophy, bilateral nonpitting edema and slightly tender, no contractures Neuro: CN II-XI grossly intact, no focal neuro deficits Psych: Alert, oriented, appropriate affect A total of 33 minutes of time were spent preparing this complex discharge summary. Patient was discharged on 02/07/23 at 11:17. Patient Condition at Discharge: Stable Plan - Discharge Summary Discharge Rx Participant: Yes New Discharge Prescriptions: New HYDROcodone/APAP 5-325MG [[place] 5-325] 1 tab PO Q6HR PRN 3 Days #12 tab PRN Reason: Severe Pain (Scale 7 To 10) Continue Gabapentin [Neurontin] 200 mg PO BID PRN PRN Reason: Pain Sildenafil Citrate 100 mg PO DAILY PRN PRN Reason: E.D. busPIRone HCL 7.5 mg PO BID Multivitamins, Thera [Multivitamin (formulary)] 1 tab PO DAILY EPINEPHrine (Auto Inject) [Epipen] 0.3 mg IM ONCE PRN PRN Reason: Anaphylaxis Apixaban [Eliquis] 5 mg PO BID Discharge Medication List EPINEPHrine (Auto Inject) [Epipen] 0.3 mg IM ONCE PRN 12/10/22 [History] Gabapentin [Neurontin] 200 mg PO BID PRN 12/10/22 [History] Multivitamins, Thera [Multivitamin (formulary)] 1 tab PO DAILY 12/10/22 [History] Sildenafil Citrate 100 mg PO DAILY PRN 12/10/22 [History] busPIRone HCL 7.5 mg PO BID 12/10/22 [History] Apixaban [Eliquis] 5 mg PO BID 02/06/23 [History] HYDROcodone/APAP 5-325MG [[place] 5-325] 1 tab PO Q6HR PRN 3 Days #12 tab 02/07/23 [Rx] Follow up Appointment(s)/Referral(s): Isaac Sousa DO [Doctor of Osteopathic Medicine] - 3 Weeks None,Stated [Primary Care Provider] - 1-2 days Patient Instructions/Handouts: Deep Vein Thrombosis (DC) Activity/Diet/Wound Care/Special Instructions: Please see hematology in [place]. Discharge Disposition: HOME SELF-CARE
== END 2023-02-07 12:35 | disposition home or self-care (01) ==
LOC: EC 14:35 → 6NMEDSUR 22:46
PROVIDERS: ADMIT Internal Medicine; ATTEND Internal Medicine
DX: I82.403 Acute embolism and thrombosis of unspecified deep veins of lower extremity, bilateral (principal); D68.51 Activated protein C resistance; Z86.711 Personal history of pulmonary embolism; F43.10 Post-traumatic stress disorder, unspecified; F17.200 Nicotine dependence, unspecified, uncomplicated; Z79.01 Long term (current) use of anticoagulants; Z79.82 Long term (current) use of aspirin; Z79.899 Other long term (current) drug therapy; Z91.030 Bee allergy status; I82.531 Chronic embolism and thrombosis of right popliteal vein; I82.502 Chronic embolism and thrombosis of unspecified deep veins of left lower extremity; F10.10 Alcohol abuse, uncomplicated; Z95.828 Presence of other vascular implants and grafts; I82.511 Chronic embolism and thrombosis of right femoral vein
CPT/HCPCS: 96376 ×2; 96366 ×2; 96365; 96372; 96375; 99285; 36415; 85025 ×2; 85610; 85730 ×2; 93970; G0378 ×2; J1644 ×2; J1170 ×3

== ENCOUNTER 2023-02-17 09:43 | Emergency (ER) | payer OTHER ==
[2023-02-17 09:48] VITALS: TEMP 98.1
[2023-02-17] MEDS ORDERED: IBUPROFEN 800 MG TAB PO STA (10:05)
[2023-02-17] MEDS ORDERED: ACETAMINOPHEN TAB 325 MG TAB PO STA (10:05)
--- NOTE | 2023-02-17 10:10 | ED ---
Upper Extremity HPI - General Chief Complaint: Extremity Injury, Upper Stated Complaint: L hand injury Time Seen by Provider: 02/17/23 09:58 Source: patient Mode of arrival: ambulatory Limitations: no limitations - History of Present Illness Initial Comments: 52-year-old male presents ambulatory with complaints of left hand injury two days ago. Patient states he was stacking logs and a friend tossed him one bending back his fourth and fifth fingers and he felt a crack. Continues to have pain and swelling with mild limited range of motion. States tetanus shot is up-to-date. Has not had any pain medication today. Denies any other concerning injuries. Is a pack-a-day smoker. History of DVT. MD Complaint: Injury to:: left, hand -: days(s) (2) Handedness: right Place: outdoors Severity scale (1-10): 10 Improves With: immobilization Worsens With: movement of extremity Context: other (hit with log felt crack) Associated Symptoms: denies other symptoms - Related Data Home Medications Medication Instructions Recorded Confirmed EPINEPHrine (Auto Inject) [Epipen] 0.3 mg IM ONCE PRN 12/10/22 02/06/23 Gabapentin [Neurontin] 200 mg PO BID PRN 12/10/22 02/06/23 Multivitamins, Thera [Multivitamin 1 tab PO DAILY 12/10/22 02/06/23 (formulary)] Sildenafil Citrate 100 mg PO DAILY PRN 12/10/22 02/06/23 busPIRone HCL 7.5 mg PO BID 12/10/22 02/06/23 Apixaban [Eliquis] 5 mg PO BID 02/06/23 02/06/23 Previous Rx's Medication Instructions Recorded HYDROcodone/APAP 5-325MG [[place] 1 tab PO Q6HR PRN 3 Days #12 tab 02/07/23 5-325] Allergies Allergy/AdvReac Type Severity Reaction Status Date / Time venom-honey bee Allergy Rash/Hives Verified 02/06/23 22:41 Review of Systems ROS Statement: Those systems with pertinent positive or pertinent negative responses have been documented in the HPI. ROS Other: All systems not noted in ROS Statement are negative. Past Medical History Past Medical History: Deep Vein Thrombosis (DVT), Pulmonary Embolus (PE) Additional Past Medical History / Comment(s): DDD, DVT History of Any Multi-Drug Resistant Organisms: None Reported Past Surgical History: Orthopedic Surgery Additional Past Surgical History / Comment(s): thrombectomy in LLE Past Anesthesia/Blood Transfusion Reactions: No Reported Reaction Past Psychological History: PTSD Smoking Status: Current every day smoker Past Alcohol Use History: Daily, Heavy Past Drug Use History: Marijuana General Exam Limitations: no limitations General appearance: alert, in no apparent distress Head exam: Present: atraumatic Eye exam: Absent: scleral icterus, conjunctival injection, periorbital swelling Respiratory exam: Absent: respiratory distress, accessory muscle use Cardiovascular Exam: Present: tachycardia Left Forearm Wrist exam: Present: full ROM Hand Wrist exam: Present: tenderness, swelling, abrasion, ecchymosis Neuro motor exam: Present: wrist extension intact, thumb opposition intact, thumb IP flexion intact, thumb adduction intact, fingers 2-5 abduction intact Neurosensory exam: Present: radial nerve intact, ulnar nerve intact, median nerve intact Vascular: Present: normal capillary refill, radial pulse. Absent: vascular compromise Neurological exam: Present: alert, oriented X3 Psychiatric exam: Present: normal affect, normal mood Skin exam: Present: warm, dry, normal color, abrasion (Left forearm), other (Bruising to the right forearm). Absent: cyanosis, diaphoretic Course Vital Signs 02/17/23 02/17/23 09:44 10:51 Temperature 98.1 F 98.1 F Pulse Rate 102 H 97 Respiratory 18 16 Rate Blood Pressure 122/81 125/76 O2 Sat by Pulse 99 97 Oximetry Procedures - Orthopedic Splinting/Casting Injury #1 Side: left Upper Extremity Injury Location: hand Upper Extremity Immobilizer: ulnar gutter Additional Comments: Neurovascularly intact prior to and post splint Medical Decision Making - Medical Decision Making Was pt. sent in by a medical professional or institution (, PA, PARKING [employer]ATION ENFORCEMENT OFFICER, urgent care, hospital, or residential...) When possible be specific @ -No Did you speak to anyone other than the patient for history (EMS, parent, family, police, friend...)? What history was obtained from this source @ -No Did you review nursing and triage notes (agree or disagree)? Why? @ -I reviewed and agree with nursing and triage notes Were old charts reviewed (outside hosp., previous admission, EMS record, old EKG, old radiological studies, urgent care reports/EKG's, residential records)? Report findings @ -No old charts were reviewed Differential Diagnosis (chest pain, altered mental status, abdominal pain women, abdominal pain men, vaginal bleeding, weakness, fever, dyspnea, syncope, headache, dizziness, GI bleed, back pain, seizure, CVA, palpatations, mental health, musculoskeletal)? @ -Fracture, dislocation, soft tissue injury, foreign body EKG interpreted by me (3pts min.). @ -n/a X-rays interpreted by me (1pt min.). @ -yes X-ray of the left hand interpreted by me shows a fifth metacarpal oblique fracture. CT interpreted by me (1pt min.). @ -None done U/S interpreted by me (1pt. min.). @ -None done What testing was considered but not performed or refused? (CT, X-rays, U/S, labs)? Why? @ -None What meds were considered but not given or refused? Why? @ -None Did you discuss the management of the patient with other professionals (professionals i.e. , PA, P[employer] ENFORCEMENT OFFICER, lab, RT, psych nurse, foster care social worker, automation and controls instructor, teacher, nursing officer, medical case manager)? Give summary @ -No Was smoking cessation discussed for >3mins.? @ -yes Was critical care preformed (if so, how long)? @ -No Were there social determinants of health that impacted care today? How? (Homelessness, low income, unemployed, alcoholism, drug addiction, transp ortation, low edu. Level, literacy, decrease access to med. care, fdc, rehab)? @ -No Was there de-escalation of care discussed even if they declined (Discuss DNR or withdrawal of care, Hospice)? DNR status @ -No What co-morbidities impacted this encounter? (DM, HTN, Smoking, COPD, CAD, Cancer, CVA, ARF, Chemo, Hep., AIDS, mental health diagnosis, sleep apnea, morbid obesity)? @ -History of DVT, PTSD, daily smoker Was patient admitted / discharged? Hospital course, mention meds given and route, prescriptions, significant lab abnormalities, going to OR and other pertinent info. @ -Discharged 52-year-old male presents ambulatory with complaints of left hand injury two days ago. Patient states he was stacking logs and a friend tossed him one bending back his fourth and fifth fingers and he felt a crack. Continues to have pain and swelling with mild limited range of motion. States tetanus shot is up-to-date. Has not had any pain medication today. Denies any other concerning injuries. Multiple abrasions to hands and arms. Tetanus shot up-to-date. Patient is right-hand dominant. X-ray of the left hand interpreted by me shows a fifth metacarpal oblique fracture. RADIOLOGIST INTERPRETATION OBLIQUE FRACTURE EXTENDING ALONG THE LENGTH OF THE FIFTH METATARSAL SHAFT WITH MINIMAL 2 MM displacement with soft tissue swelling. Patient was placed in a gutter splint neurovascularly intact prior to and post splinting. Directed to follow up with orthopedics. Tylenol or Ultram as needed for pain and discomfort. Directed not to take Motrin or ibuprofen products due to eliquis. Rest ice and elevate. Patient agreeable to this plan of care. Case discussed with Dr. Julio Undiagnosed new problem with uncertain prognosis? @ -No Drug Therapy requiring intensive monitoring for toxicity (Heparin, Nitro, Insulin, Cardizem)? @ -No Were any procedures done? @ -Ulnar gutter splint applied neurovascularly intact prior to and post splinting Diagnosis/symptom? @ -Fifth metacarpal fracture Acute, or Chronic, or Acute on Chronic? @ -Acute Uncomplicated (without systemic symptoms) or Complicated (systemic symptoms)? @ -Uncomplicated Side effects of treatment? @ -No Exacerbation, Progression, or Severe Exacerbation? @ -No Poses a threat to life or bodily function? How? (Chest pain, [place], [place], pneumonia, PE, COPD, DKA, ARF, appy, cholecystitis, CVA, Diverticulitis, Homicidal, Suicidal, threat to staff... and all critical care pts) @ -No Disposition Clinical Impression: Fracture of 5th metatarsal Disposition: HOME SELF-CARE Condition: Good Instructions (If sedation given, give patient instructions): Hand Fracture (ED) Additional Instructions: Rest, ice and elevate. Wear splint until seen by orthopedics. Tylenolas needed for pain or discomfort. Return to the emergency room with a concerning symptoms including increased pain Is patient prescribed a controlled substance at d/c from ED?: No Referrals: None,Stated [Primary Care Provider] - 1-2 days Neville Macedo DO [Doctor of Osteopathic Medicine] - 1-2 days Time of Disposition: 10:38
--- NOTE | 2023-02-17 10:22 | XR ---
EXAMINATION TYPE: XR hand complete 3 views LT DATE OF EXAM: 02/17/2023 Comparison: None Clinical History: 52-year-old male pain 4th 5th after hit with log 2 days ago Findings: Oblique fracture extending across the fifth metatarsal shaft. 2 mm of offset. Associated soft tissue swelling. Mild degenerative change of the first CMC joint. No additional acute fracture, subluxation, or dislocation. Impression: Oblique fracture extending along the length of the fifth metatarsal shaft with minimal 2 mm of offset . Soft tissue swelling.
[2023-02-17] MEDS ORDERED: traMADol 50 MG STARTER PACK 3 TAB BTL PO STA (10:38)
[2023-02-17 10:56] VITALS: BP 125/76; PULSE 97; RESP 16
== END 2023-02-17 11:00 | disposition home or self-care (01) ==
LOC: EC 09:43
DX: S62.307A Unspecified fracture of fifth metacarpal bone, left hand, initial encounter for closed fracture (principal); S50.11XA Contusion of right forearm, initial encounter; S50.812A Abrasion of left forearm, initial encounter; R00.0 Tachycardia, unspecified; F17.200 Nicotine dependence, unspecified, uncomplicated; F12.90 Cannabis use, unspecified, uncomplicated; Z79.01 Long term (current) use of anticoagulants; Z86.711 Personal history of pulmonary embolism; Z86.718 Personal history of other venous thrombosis and embolism; Z91.030 Bee allergy status; W22.8XXA Striking against or struck by other objects, initial encounter; Y92.89 Other specified places as the place of occurrence of the external cause
CPT/HCPCS: 29125; 99283